=== PATIENT | female | born 1985 | race Caucasian/White ===

== ENCOUNTER 2018-02-27 22:35 | Emergency (ER) | payer OTHER, MEDICAID, SELFPAY ==
[2018-02-27] MEDS: LORazepam 2 MG/ML SYRINGE IM (23:13)
--- NOTE | 2018-02-27 23:46 | DI.CT.S_ITS ---
PROCEDURE: CT ABDOMEN PELVIS W CON INDICATIONS: severe abdominal pain TECHNIQUE: After the administration of intravenous contrast, 5 mm thick sections acquired from the diaphragm to the symphysis. 5 mm coronal and sagittal reformats were acquired. For radiation dose reduction, the following was used: automated exposure control, adjustment of mA and/or kV according to patient size. COMPARISON: None. FINDINGS: Image quality: Excellent. ABDOMEN: Lung bases: Lung bases are clear. Heart size is normal. Solid organs: Liver is normal in size and enhancement. Mild hepatic steatosis is seen. Gallbladder is within normal limits. Biliary system is non dilated. Pancreas enhances normally. Spleen is normal in size and enhancement. No adrenal nodules. Kidneys demonstrate normal size and enhancement, without hydronephrosis. Peritoneum and bowel: Bowel loops demonstrate normal wall thickness and caliber. No free fluid or air. Small hiatal hernia is seen. Appendix is visualized and is within normal limits. Nodes and vessels: No retroperitoneal or mesenteric adenopathy by size criteria. Aorta and inferior vena cava are normal in size. Miscellaneous: No ventral hernias. PELVIS: Genitourinary: Bladder wall thickness is normal. Miscellaneous: No inguinal hernias or adenopathy. Bones: No suspicious bony lesions. No vertebral body compression fractures. IMPRESSION: No acute inflammatory process within the abdomen or pelvis. No finding to explain patient's symptoms. Mild hepatic steatosis. Normal appendix. Small hiatal hernia. No significant discrepancies. Dictated by: Pete Harris M.D. on 02/28/2018 at 8:57 Approved by: Pete Harris M.D. on 02/28/2018 at 8:58
--- NOTE | 2018-02-27 23:51 | ED_ITS ---
HPI - Nausea/Vomiting/Diarrhea General Chief complaint: Nausea/Vomiting/Diarrhea Stated complaint: ABD Pain Time Seen by Provider: 02/27/18 22:50 Source: patient, family and EMS Mode of arrival: EMS Limitations: no limitations History of Present Illness HPI Narrative: 32-year-old female presents with a chief complaint of severe abdominal pain with nausea and vomiting over the course of the day. She states she has stomach ulcers and this feels similar. It is unclear if she has been taking any medications for this as she is quite hysterical and upset on her arrival. She denies any recent admissions and has had no fever or chills. She denies provocation, palliation or radiation but merely states she needs something for her nausea immediately or she will have another stomach attack MD complaint: nausea, vomiting and abdominal pain Onset (ago): hour(s) Description of Vomiting: food contents Description of Diarrhea: none Associated Abdominal Pain: Yes Location of pain: diffuse Radiation: diffuse Severity: severe Quality: cramping and aching Pain Consistency: constant Relieving factors: none Exacerbating factors: none Associated symptoms: denies other symptoms Related Data Previous Rx's Medication Instructions Recorded ondansetron [Zofran ODT] 4 mg PO Q6H PRN #14 tab 02/28/18 promethazine [Phenergan] 25 mg LA Q4-6H PRN #12 each 02/28/18 Review of Systems Review of Systems All systems reviewed & are unremarkable except as noted in HPI and below Constitutional Denies chills, Denies fever(s), Denies lethargy and Denies weakness Eyes Denies change in vision, Denies eye discharge, Denies irritation and Denies loss of vision ENT Ears, Nose, Mouth, and Throat: Denies change in voice, Denies neck pain and Denies sore throat Cardiovascular Denies chest pain, Denies irregular heart rhythm, Denies lightheadedness, Denies palpitations, Denies dyspnea, Denies dyspnea on exertion and Denies orthopnea Respiratory Denies cough, Denies dyspnea, Denies dyspnea on exertion and Denies wheezing Gastrointestinal Gastrointestinal: Reports abdominal pain, Denies change in bowel habits, Denies diarrhea, Reports nausea and Reports vomiting Genitourinary Denies hematuria, Denies flank pain, Denies urinary incontinence and Denies urinary urgency Musculoskeletal Denies neck pain Integumentary/Breasts Denies pruritus, Denies erythema, Denies rash and Denies wounds Neurologic Denies confusion, Denies loss of vision and Denies weakness Psychiatric Denies anxiety, Denies confusion, Denies depression, Denies homicidal ideation and Denies suicidal ideation Endocrine Denies palpitations Hematologic/Lymphatic Denies easy bruising Allergic/Immunologic Denies wheezing Exam Narrative Exam Narrative: 32-year-old female walks in from ambulance and is screaming and loudly vomiting/dry heaving, screaming for nausea medicines in a very busy ER Initial Vital Signs Initial Vital Signs: Vital Signs Temperature 97.7 F 02/28/18 00:13 Pulse Rate 72 02/28/18 00:13 Respiratory Rate 18 02/28/18 00:13 Blood Pressure 96/52 L 02/28/18 00:13 Pulse Oximetry 96 02/28/18 00:13 Const General: well developed, acute distress and well hydrated Nutritional Appearance: well nourished Orientation: alert, awake, oriented x3 and not confused Limitations: behavioral limitations HENMT Head: normocephalic and atraumatic Ears: external ears normal and TM's normal bilaterally Nose: external nose normal and No nasal discharge Face and sinus: sinuses nontender, face symmetric, no sinus tenderness and No dry mucous membranes Mouth: oral mucosae normal and moist mucous membranes Teeth and gingiva: dentition normal Throat: tonsils normal and uvula midline Eyes General: appearance normal, both eyes and all related structures Eyelids: eyelids normal Conjunctivae: conjunctivae normal Sclera: sclerae normal Pupils: PERRL EOM: EOM intact bilaterally Neck Neck: normal visual inspection, trachea midline, No lymphadenopathy, No midline deformity and No JVD Lymphatic: No lymphedema Chest Chest: normal inspection of the chest Resp Effort & Inspection: normal respiratory effort, able to speak in complete sentences, no respiratory distress and no use of accessory muscles Auscultation: clear to auscultation bilaterally, no rales, no rhonchi and no wheezes Cardio Rate: regular rate Rhythm: regular rhythm Heart Sounds: no click, no gallops, no murmurs and no rubs Pulses: normal peripheral pulses GI Inspection: non-distended Palpation: soft, no hepatosplenomegaly, No guarding, No pulsatile mass and tender (Entire abdomen is tender to the patient but soft with normal bowel sounds) Auscultation: normal bowel sounds Back/Spine/Pelvis Back: No CVA tenderness Cervical Spine: cervical ROM normal and No pain with cervical ROM Thoracic/Lumbar Spine: thoracic and lumbar spine normal to inspection Skin General: no rashes or lesions noted, No jaundice and No petechiae Neuro General: alert, oriented x3, gait normal and no focal motor deficits Speech: speech normal Extrem General: full ROM, no clubbing, cyanosis or edema, no pedal edema and no calf tenderness Psych Appearance: disheveled Mental Status: mental status grossly normal Speech and Movement: agitated Mood: irritable mood Affect: animated, anxious affect and hostile Attitude: cooperative Thought Content: normal and suicidality Judgment: judgment good Course Orders Ordered: ED Orders 02/27/18 23:46 CT abdomen pelvis w con Stat 02/27/18 23:56 Complete Blood Count AUTO DIFF Stat Comprehensive Metabolic Panel Stat Discontinued Medications Sodium Chloride (Normal Saline 0.9%) 1,000 mls @ 1,000 mls/hr IV BOLUS ONE Stop: 02/28/18 00:45 Last Infusion: 02/28/18 04:00 Dose: 0 mls/hr Admin: 02/27/18 23:57 Dose: 1,000 mls/hr Lorazepam (Ativan) 2 mg IM NOW ONE Stop: 02/27/18 23:07 Last Admin: 02/27/18 23:13 Dose: 2 mg Ondansetron HCl (Zofran Odt) 4 mg PO NOW ONE Stop: 02/27/18 23:16 Last Admin: 02/27/18 23:16 Dose: Not Given Ondansetron HCl (Zofran) 4 mg IV NOW ONE Stop: 02/27/18 23:47 Last Admin: 02/27/18 23:57 Dose: 4 mg Reevaluation(s) Reevaluation #1: Patient is very hostile to all staff whom are trying to help her. She refused a Zofran ODT while we were pulling IV and labs. She kicked of 1 out of the room and was screaming at us, stating nobody cared and would help her. She demanded a new doctor when I asked if we could give her the initial Zofran as a dissolvable tablet while we prepared the rest of the items for her evaluation. She was given Ativan due to her persistent vomiting and suspicion of cyclic vomiting which seemed to really help her and allow us to start an IV, administered fluids, CT and other. Vital Signs - 8 hr 02/28/18 00:13 02/28/18 02:30 02/28/18 03:30 Temperature 97.7 F Pulse Rate 72 74 75 Respiratory Rate 18 Blood Pressure [Left Arm] 96/52 L 96/49 L 113/65 Pulse Oximetry 96 97 98 02/28/18 04:30 Temperature Pulse Rate 75 Respiratory Rate Blood Pressure [Left Arm] 105/60 Pulse Oximetry 98 MDM - Nausea/Vomiting/Diarrhea Differential Diagnosis Likely traveler's diarrhea, food poisoning, gastroenteritis, clostridium difficile infection, drug-induced nausea and vomiting and dehydration Medical Records Attestation: I reviewed the patient's medical records. Lab Data Attestation: I reviewed the patient's lab results. Result diagrams: 02/27/18 23:56 02/27/18 23:56 Lab Results 02/27/18 02/27/18 Range/Units 23:56 23:56 WBC 10.3 (4.5-11.0) X10^3/uL RBC 4.75 (4.0-5.2) X10^6/uL Hgb 14.9 (12.0-16.0) g/dL Hct 42.8 (36-46) % MCV 90.1 (80-100) fL MCH 31.4 (26-34) PG MCHC 34.9 (30-36) % RDW 13.6 (11.6-14.8) % Plt Count 241 (150-400) X10^3/uL Neut % (Auto) 69.1 (50-75) % Lymph % (Auto) 22.5 L (25-40) % [place] % (Auto) 7.8 (3-14) % Eos % (Auto) 0.2 L (2-4) % Baso % (Auto) 0.4 (0-2) % Neut # (Auto) 7100 H (5137-6046) /uL Sodium 147 H (137-145) mmol/L Potassium 3.6 (3.4-5.1) mmol/L Chloride 105 (98-107) mmol/L Carbon Dioxide 29 (22-32) mmol/L BUN 10 (7-17) mg/dL Creatinine 0.80 (0.52-1.04) mg/dL Estimated GFR > 60.0 (>60) mL/min BUN/Creatinine Ratio 12.5 (6-22) Glucose 110 H (70-100) mg/dL Calcium 9.4 (8.4-10.2) mg/dL Total Bilirubin 0.3 (0.2-1.3) mg/dL AST 25 (14-36) IU/L ALT 26 (9-52) IU/L Alkaline Phosphatase 59 (38-126) U/L Total Protein 7.6 (6.3-8.2) g/dL Albumin 4.7 (3.5-5.0) g/dL Globulin 2.9 (1.7-4.1) g/dL Albumin/Globulin Ratio 1.6 (1.0-2.8) Imaging Data CT scan - abdomen: Radiologist's impression: Distended gallbladder without stones Discharge Plan Departure Patient Disposition: Home Clinical Impression: Vomiting, Abdominal pain Instructions: DI for Vomiting -- Adult Activity Restrictions/Additional Instructions: *You have been diagnosed with [abdominal pain and vomiting ] *What to do: *Take medications as directed *Follow up with your primary care provider in 2-3 days, call for an appointment. Let them know you were seen in the Emergency Department and that we ask that you be seen in follow up *Return to ER if you should have any new, worsening or concerning symptoms Prescriptions: New promethazine [Phenergan] 25 mg suppository 25 mg LA Q4-6H PRN (Reason: nausea and vomiting) Qty: 12 RF: 0 ondansetron [Zofran ODT] 4 mg tablet,disintegrating 4 mg PO Q6H PRN (Reason: nausea and vomiting) Qty: 14 RF: 0
[2018-02-27] MEDS: ONDANSETRON 4 MG/2 ML INJ IV (23:57)
[2018-02-27] MEDS: SODIUM CHLORIDE 0.9% 1,000 ML 1000 ML IV (23:57)
[2018-02-28 00:02] LABS: Add Manual Diff / Slide Review NO; Basophils Percent Auto 0.4 % (0-2); Eosinophils Percent Auto 0.2 % (2-4); Hematocrit 42.8 % (36-46); Hemoglobin 14.9 g/dL (12.0-16.0); Lymphocytes Percent Auto 22.5 % (25-40); Mean Corpuscular HGB Conc 34.9 % (30-36); Mean Corpuscular Hemoglobin 31.4 PG (26-34); Mean Corpuscular Volume 90.1 fL (80-100); Monocytes Percent Auto 7.8 % (3-14); Neutrophils Absolute Auto 7100 /uL (3000-5900); Neutrophils Percent Auto 69.1 % (50-75); Platelet Count 241 X10^3/uL (150-400); Red Blood Cell Count 4.75 X10^6/uL (4.0-5.2); Red Cell Distribution Width 13.6 % (11.6-14.8); White Blood Cell Count 10.3 X10^3/uL (4.5-11.0)
[2018-02-28 00:10] LABS: Alanine Aminotransferase 26 IU/L (9-52); Albumin 4.7 g/dL (3.5-5.0); Albumin Globulin Ratio 1.6 (1.0-2.8); Alkaline Phosphatase 59 U/L (38-126); Aspartate Aminotransferase 25 IU/L (14-36); BUN Creatinine Ratio 12.5 (6-22); Bilirubin Total 0.3 mg/dL (0.2-1.3); Blood Urea Nitrogen 10 mg/dL (7-17); Calcium 9.4 mg/dL (8.4-10.2); Carbon Dioxide 29 mmol/L (22-32); Chloride 105 mmol/L (98-107); Estimated Glomerular Filt Rate > 60.0 mL/min (>60); Globulin 2.9 g/dL (1.7-4.1); Glucose 110 mg/dL (70-100); HEMOLYSIS < 15 (0-50); Potassium 3.6 mmol/L (3.4-5.1); Sodium 147 mmol/L (137-145); Total Protein 7.6 g/dL (6.3-8.2)
--- NOTE | 2018-02-28 00:12 | PC.NURSE ---
Pt continues to be very labile with aggressive language towards staff. She called nurse and doctor erlinda marte. Not allowing staff to ask her questions about her condition. At 0015 she did allow staff to take a set of vital signs. She is complaining of throbbing pain in lower abdomen. Denies possibility of . When asked if her pain feels similar to her ulcers in the past, she began screaming and cursing at me.
[2018-02-28 00:13] VITALS: BP 96/52; PULSE 72; RESP 18; TEMP 36.5; O2SAT 96
[2018-02-28 02:30] VITALS: BP 96/49; PULSE 74; O2SAT 97
[2018-02-28 03:30] VITALS: BP 113/65; PULSE 75; O2SAT 98
[2018-02-28 04:30] VITALS: BP 105/60; PULSE 75; O2SAT 98
--- NOTE | 2018-02-28 05:38 | PC.NURSE ---
Pt. has been sleeping since I assumed her care from Johana MCGARRY. I aroused her a couple times to reposition blood pressure cuff. Patient was calm and cooperative. Denies needs. returns to sleep.
[2018-02-28 05:41] VITALS: BP 119/68; PULSE 77; RESP 17; TEMP 36.8; O2SAT 98
== END 2018-02-28 05:44 | disposition home or self-care (01) ==
PROVIDERS: Emergency Provider Emergency Medicine
DX: R11.10 Vomiting, unspecified (principal); R10.9 Unspecified abdominal pain
CPT/HCPCS: 36591; 74177; 80053; 85025; 96361; 96372; 96374; 99283; 99285; J2060; J2405; Q9967

== ENCOUNTER 2020-11-05 16:09 | Emergency (ER) | payer OTHER, MEDICAID, SELFPAY ==
[2020-11-05 16:13] VITALS: BP 140/72; PULSE 101; RESP 18; TEMP 36.7; O2SAT 100
--- NOTE | 2020-11-05 16:22 | ED.SKABFB ---
HPI - Skin/Abscess/Foreign Bdy General Chief complaint: Skin/Abscess/Foreign Body Stated complaint: swollen feet from sun poisoning Time Seen by Provider: 11/05/20 16:19 Source: patient Mode of arrival: Ambulatory Limitations: no limitations History of Present Illness HPI narrative: 34-year-old female daily smoker with a history of ulcers presents with a chief complaint of a few days of bilateral foot pain and swelling. She states that she had been outside and had significant sun exposure and developed a sunburn followed by some blisters and now this swelling and pain. The redness and swelling does not extend beyond the anterior half of her feet. She is able to ambulate without significant difficulty. She denies any systemic findings such as fever, chills nor nausea or vomiting. She does have a few areas with breaks in the skin which are the likely route of her mild infection MD complaint: discoloration Onset (ago): day(s) Tetanus up to date: yes Location: L foot and R foot Severity: moderate Quality: burning and aching Pain Consistency: constant Relieving factors: rest Exacerbating factors: palpation and movement Treatments prior to arrival: bandages Related Data Previous Rx's Medication Instructions Recorded ondansetron [Zofran ODT] 4 mg PO Q6H PRN #14 tab 02/28/18 promethazine [Phenergan] 25 mg LA Q4-6H PRN #12 each 02/28/18 cephalexin 500 mg PO Q6H 7 Days #28 cap 11/05/20 ketorolac 10 mg PO Q6H PRN #14 tab 11/05/20 Allergies Allergy/AdvReac Type Severity Reaction Status Date / Time No Known Drug Allergies Allergy Verified 11/05/20 16:16 Review of Systems Constitutional Constitutional: Denies chills, Denies fatigue, Denies fever(s), Denies frequent falls, Denies lethargy and Denies weakness Eyes Eyes: Denies change in vision, Denies eye discharge, Denies irritation and Denies loss of vision ENT Ears, Nose, Mouth, and Throat: Denies change in voice, Denies dizziness, Denies neck pain, Denies sore throat and Denies throat swelling Cardiovascular Cardiovascular: Denies chest pain, Denies irregular heart rhythm, Denies lightheadedness, Denies palpitations, Denies dyspnea, Denies dyspnea on exertion and Denies orthopnea Respiratory Respiratory: Denies cough, Denies dyspnea, Denies dyspnea on exertion and Denies wheezing Gastrointestinal Gastrointestinal: Denies abdominal pain, Denies change in bowel habits, Denies diarrhea, Denies nausea and Denies vomiting Musculoskeletal Musculoskeletal: Denies neck pain and Denies numbness Integumentary/Breasts Skin/Breast: Denies pruritus, Reports erythema, Denies rash, Reports skin pain, Reports skin swelling and Denies wounds Neurologic Neurologic: Denies behavioral changes, Denies confusion, Denies dizziness, Denies frequent falls, Denies loss of vision, Denies numbness and Denies weakness Psychiatric Psychiatric: Denies anxiety, Denies behavioral changes, Denies confusion, Denies depression, Denies homicidal ideation and Denies suicidal ideation Endocrine Endocrine: Denies fatigue, Denies flushing and Denies palpitations Hematologic/Lymphatic Hematologic/Lymphatic: Denies easy bruising Allergic/Immunologic Allergic/Immunologic: Denies urticaria, Denies throat swelling and Denies wheezing Patient History Social History Smoking Status: Current some day smoker Smoking Status: Current some day smoker Exam Narrative Exam Narrative: GEN: AOx3 and in mild distress EYES: Pupils are equal, round, and reactive to light and accommodation. Extraoccular muscles are intact bilaterally. There is no subconjunctival hemorrhage or exudate. CHEST: Lungs are clear to auscultation bilaterally and free of wheezes, rales, or rhonchi. Heart rate is regular rhythm, there are no murmurs, clicks, rubs, or gallops. There is no chest wall tenderness. ABD: Abdomen is soft and nontender. There is no guarding or rebound. Bowel sounds are normal in all 4 quadrants. There is no mass or organomegaly. EXT: Full painless ROM of all extremities with no loss of sensation or strength. SKIN: Dorsum of both feet is erythematous and a bit edematous. There is evidence of some spontaneously on roofed blisters, presumably from sunburn but no drainage of purulence, no induration or fluctuance. There is no lymphangitis and erythema it is isolated to the dorsum of bilateral distal feet, compartments are soft, sensation and cap refill intact Initial Vital Signs Initial Vital Signs: Vital Signs Temperature 98.0 F 11/05/20 16:13 Pulse Rate 101 H 11/05/20 16:13 Respiratory Rate 18 11/05/20 16:13 Blood Pressure 140/72 11/05/20 16:13 Pulse Oximetry 100 11/05/20 16:13 Course Vital Signs Vital signs: Vital Signs - 8 hr 11/05/20 16:13 Temperature 98.0 F Pulse Rate 101 H Respiratory Rate 18 Blood Pressure 140/72 Pulse Oximetry 100 Discharge Plan Departure Patient Disposition: Home Clinical Impression: Cellulitis Qualifiers: Site of cellulitis: extremity Site of cellulitis of extremity: lower extremity Laterality: unspecified laterality Qualified Code(s): L03.119 - Cellulitis of unspecified part of limb Instructions: DI for Cellulitis -- Adult Activity Restrictions/Additional Instructions: *You have been diagnosed with [bilateral lower extremity cellulitis] *What to do: *Please continue to take your regular medications as directed. [ ] New medication prescriptions sent to your pharmacy: [ ] [x ] New medication written as a paper prescription [ ] No new medications given *Please follow up with your primary care provider in 2-3 days, call for an appointment. Let them know you were seen in the Emergency Department and that we ask that you be seen in follow up. We will electronically transmit a record of today's note if your PCP is in our system *If you do not have a primary care provider please contact the [facility] Resource line at [phone]. They will ask some questions about your medical history and help get you set up with a doctor in the community. *Return to Emergency Department if you should have any new, worsening or concerning symptoms, such as [fever greater than 101 F, shaking chills, worsening pain, persistent vomiting or other bothersome symptoms] Prescriptions: New ketorolac 10 mg tablet 10 mg PO Q6H PRN (Reason: pain) Qty: 14 RF: 0 cephalexin 500 mg capsule 500 mg PO Q6H 7 Days Qty: 28 RF: 0 No Action promethazine [Phenergan] 25 mg suppository 25 mg LA Q4-6H PRN (Reason: nausea and vomiting) Qty: 12 RF: 0 ondansetron [Zofran ODT] 4 mg tablet,disintegrating 4 mg PO Q6H PRN (Reason: nausea and vomiting) Qty: 14 RF: 0
== END 2020-11-05 17:17 | disposition home or self-care (01) ==
PROVIDERS: Emergency Provider Emergency Medicine
DX: L03.116 Cellulitis of left lower limb (principal); L03.115 Cellulitis of right lower limb
CPT/HCPCS: 99281

== ENCOUNTER 2020-11-26 14:37 | Emergency (ER) | payer OTHER, MEDICAID, SELFPAY ==
[2020-11-26 14:38] VITALS: BP 120/75; PULSE 99; RESP 12; O2SAT 99; BMI 27.4
[2020-11-26 14:40] VITALS: PULSE 98; O2SAT 99
--- NOTE | 2020-11-26 14:52 | ED.GENADULT ---
HPI - General Adult General Chief complaint: Fall Stated complaint: FELL HIT RIGHT SIDE SWELLING Time Seen by Provider: 11/26/20 14:46 Source: patient Mode of arrival: Ambulatory Limitations: no limitations History of Present Illness HPI narrative: Patient states that for the past several months she has had issues with shortness of breath. She has not seen any providers for this. It is difficult for her to describe but she states that she become short of breath when she exerts herself. This does only happen occasionally. She also feels like her pulse is being ?pulled to the right side of her body. She states that last evening she fell over because she was short of breath landing on her right side. She is here because of the discomfort on her right side and also her shortness of breath. Related Data Previous Rx's Medication Instructions Recorded ondansetron [Zofran ODT] 4 mg PO Q6H PRN #14 tab 02/28/18 promethazine [Phenergan] 25 mg IN Q4-6H PRN #12 each 02/28/18 ketorolac 10 mg PO Q6H PRN #14 tab 11/05/20 Allergies Allergy/AdvReac Type Severity Reaction Status Date / Time No Known Drug Allergies Allergy Verified 11/26/20 14:43 Review of Systems Constitutional Constitutional: Denies fever(s) and Denies headache(s) ENT Ears, Nose, Mouth, and Throat: Denies headache(s) Cardiovascular Cardiovascular: Denies chest pain and Reports dyspnea (Occasional) Respiratory Respiratory: Reports dyspnea (Occasional) Gastrointestinal Gastrointestinal: Denies abdominal pain Integumentary/Breasts Comments: Bruising to her right arm, right hand and right side Neurologic Neurologic: Reports system reviewed and no additional complaints, except as documented and Denies headache(s) Psychiatric Psychiatric: Reports auditory hallucinations Hematologic/Lymphatic On Anticoagulants: No Allergic/Immunologic Allergic/Immunologic: Reports system reviewed and no additional complaints, except as documented Patient History Medical History Schizophrenia Social History Smoking Status: Current some day smoker Smoking Status: Current some day smoker alcohol intake frequency: holidays/special occasions only Substance Use Type: marijuana Exam Initial Vital Signs Initial Vital Signs: Vital Signs Pulse Rate 99 H 11/26/20 14:38 Respiratory Rate 12 11/26/20 14:38 Blood Pressure 120/75 11/26/20 14:38 Pulse Oximetry 99 11/26/20 14:38 Const General: cooperative and comfortable HENMT Head: normal to inspection and normocephalic Chest Chest: No tenderness Resp Effort & Inspection: normal respiratory effort Auscultation: clear to auscultation bilaterally Cardio Rate: regular rate Rhythm: regular rhythm Skin Other: Patient has a bruise on her right shoulder. Also has a bruise in the back of her right hand. Also has a bruise along her right flank. Neuro General: patient alert, patient awake and patient oriented x3 Speech: speech normal Extrem General: normal to inspection and capillary refill normal Other: Full range of motion of joints of her right upper and lower extremity Psych Appearance: grossly normal and well kempt Course Orders Ordered: ED Orders 11/26/20 14:54 XR chest 1V Stat EKG-12 Lead Stat 11/26/20 15:09 Consult to [facility] [place] - Marine Superintendent Stat 11/26/20 15:10 Complete Blood Count AUTO DIFF Stat Comprehensive Metabolic Panel Stat Lipase Stat Partial Thromboplastin Time Stat Prothrombin Time INR Stat Vital Signs Vital signs: Vital Signs - 8 hr 11/26/20 14:38 11/26/20 14:40 11/26/20 15:00 Pulse Rate 99 H 98 H 94 H Respiratory Rate 12 Blood Pressure 120/75 Pulse Oximetry 99 99 99 11/26/20 16:00 Pulse Rate 96 H Respiratory Rate Blood Pressure Pulse Oximetry 100 Medical Decision Making Lab Data Lab results reviewed: Yes I reviewed the patient's lab results. Result diagrams: 11/26/20 15:10 11/26/20 15:10 Labs: Lab Results 11/26/20 11/26/20 11/26/20 Range/Units 15:10 15:10 15:10 WBC 8.3 (4.5-11.0) X10^3/uL RBC 4.64 (4.0-5.2) X10^6/uL Hgb 14.0 (12.0-16.0) g/dL Hct 42.2 (36-46) % MCV 90.9 (80-100) fL MCH 30.2 (26-34) PG MCHC 33.2 (30-36) % RDW 14.1 (11.6-14.8) % Plt Count 298 (150-400) X10^3/uL Neut % (Auto) 66.0 (50-75) % Lymph % (Auto) 25.5 (25-40) % Wagoner % (Auto) 7.0 (3-14) % Eos % (Auto) 0.7 L (2-4) % Baso % (Auto) 0.8 (0-2) % Neut # (Auto) 5500 (9008-9597) /uL Lymph # (Auto) 2100 (2336-8573) /uL Wagoner # (Auto) 600 (0-900) /uL Eos # (Auto) 100 (0-450) /uL Baso # (Auto) 100 (0-100) /uL PT 10.9 (10.1-12.7) SECONDS INR 1.0 (0.9-1.3) APTT 36 (26.4-36.2) SECONDS Sodium 137 (137-145) mmol/L Potassium 3.6 (3.4-5.1) mmol/L Chloride 99 (98-107) mmol/L Carbon Dioxide 30 (22-32) mmol/L BUN 11 (7-17) mg/dL Creatinine 0.87 (0.52-1.04) mg/dL Estimated GFR > 60.0 (>60) mL/min BUN/Creatinine Ratio 12.6 (6-22) Glucose 138 H (70-100) mg/dL Calcium 9.6 (8.4-10.2) mg/dL Total Bilirubin 0.3 (0.2-1.3) mg/dL AST 19 (14-36) IU/L ALT 17 (<35) IU/L Alkaline Phosphatase 73 (38-126) U/L Total Protein 7.7 (6.3-8.2) g/dL Albumin 4.5 (3.5-5.0) g/dL Globulin 3.2 (1.7-4.1) g/dL Albumin/Globulin Ratio 1.4 (1.0-2.8) Lipase 57 (23-300) U/L Imaging Data Chest x-ray: Radiologist's Impression: [address] [id number] ReportSigned Patient: Viktoriya Sainz LMR#: [id number]: 1985Acct:[id number]/Sex: 34 / FDate of Service: 11/26/20Loc: EDAccession Number: [id number] Procedure: XR chest 1V Ordering Provider: Max Curran D.O. PROCEDURE: XR CHEST 1V INDICATIONS: Shortness of breath TECHNIQUE: One view of the chest was acquired. COMPARISON: None. FINDINGS: Surgical changes and devices: None. Lungs and pleura: Lungs are clear. No pleural effusions or pneumothorax. Mediastinum: Mediastinal contours appear normal. Heart size is normal. Bones and chest wall: No suspicious bony lesions. Overlying soft tissues appear unremarkable. IMPRESSION: Normal for age, source of current shortness of breath symptoms is not seen. Dictated by: Jan Maher M.D. on 11/26/2020 at 14:33 Approved by: Jan Maher M.D. on 11/26/2020 at 14:34 ECG Data Attestation: I personally reviewed and interpreted this ECG as follows: Prior ECG tracings: not available for review Interpretation: Sinus rhythm Ventricular rate 86 Normal axis Normal QRS Normal QTC No ST T wave changes MDM Narrative Medical decision making narrative: Chest x-ray is unremarkable, EKG is unremarkable, labs unremarkable, low suspicion for fractures. She does have bruising on her right arm and on her right flank. They do appear to be somewhat older than 24 hours ago when she states that the event occurred. She states she feels safe at home. Not suicidal. Not homicidal. Was seen by social work. No further workup needed here in the emergency department. I do suspect that much of her symptoms are the result of her psychiatric illness. Patient is safe for discharge home. She was given return precautions. She expressed understanding and agreement. Discharge Plan Departure Patient Disposition: Home Clinical Impression: Contusion of arm, right, Contusion of hand, right, Contusion of flank Instructions: DI for Contusion Activity Restrictions/Additional Instructions: Your workup here in the emergency department is very reassuring. I recommend that you contact your primary doctor and also your mental health provider for follow-up. Continue all of your medication as directed. Return to the emergency department for any new or worsening symptoms Prescriptions: No Action ketorolac 10 mg tablet 10 mg PO Q6H PRN (Reason: pain) Qty: 14 RF: 0 promethazine [Phenergan] 25 mg suppository 25 mg IN Q4-6H PRN (Reason: nausea and vomiting) Qty: 12 RF: 0 ondansetron [Zofran ODT] 4 mg tablet,disintegrating 4 mg PO Q6H PRN (Reason: nausea and vomiting) Qty: 14 RF: 0
[2020-11-26 15:00] VITALS: PULSE 94; O2SAT 99
[2020-11-26 15:14] LABS: Add Manual Diff / Slide Review NO; Basophils Absolute Auto 100 /uL (0-100); Basophils Percent Auto 0.8 % (0-2); Eosinophils Absolute Auto 100 /uL (0-450); Eosinophils Percent Auto 0.7 % (2-4); Hematocrit 42.2 % (36-46); Lymphocytes Absolute Auto 2100 /uL (1100-4500); Lymphocytes Percent Auto 25.5 % (25-40); Mean Corpuscular HGB Conc 33.2 % (30-36); Mean Corpuscular Hemoglobin 30.2 PG (26-34); Mean Corpuscular Volume 90.9 fL (80-100); Monocytes Absolute Auto 600 /uL (0-900); Neutrophils Absolute Auto 5500 /uL (1500-7000); Platelet Count 298 X10^3/uL (150-400); Red Blood Cell Count 4.64 X10^6/uL (4.0-5.2); Red Cell Distribution Width 14.1 % (11.6-14.8); White Blood Cell Count 8.3 X10^3/uL (4.5-11.0)
[2020-11-26 15:20] LABS: Prothrombin Time 10.9 SECONDS (10.1-12.7)
[2020-11-26 15:23] LABS: PTT Partial Thromboplastin Tim 36 SECONDS (26.4-36.2)
[2020-11-26 15:25] LABS: Alanine Aminotransferase 17 IU/L (<35); Albumin 4.5 g/dL (3.5-5.0); Albumin Globulin Ratio 1.4 (1.0-2.8); Alkaline Phosphatase 73 U/L (38-126); Aspartate Aminotransferase 19 IU/L (14-36); BUN Creatinine Ratio 12.6 (6-22); Bilirubin Total 0.3 mg/dL (0.2-1.3); Blood Urea Nitrogen 11 mg/dL (7-17); Calcium 9.6 mg/dL (8.4-10.2); Carbon Dioxide 30 mmol/L (22-32); Chloride 99 mmol/L (98-107); Estimated Glomerular Filt Rate > 60.0 mL/min (>60); Globulin 3.2 g/dL (1.7-4.1); Glucose 138 mg/dL (70-100); HEMOLYSIS < 15 (0-50); Lipase 57 U/L (23-300); Potassium 3.6 mmol/L (3.4-5.1); Sodium 137 mmol/L (137-145); Total Protein 7.7 g/dL (6.3-8.2)
[2020-11-26 16:00] VITALS: PULSE 96; O2SAT 100
[2020-11-26 16:30] VITALS: PULSE 95; RESP 20; O2SAT 97
--- NOTE | 2020-11-26 16:39 | CM.SWNOTE ---
DISTRIBUTING CLERK Assessment DISTRIBUTING CLERK - Scheduling Assistant Assessment DISTRIBUTING CLERK/Scheduling Assistant Assessment Time Spent with Patient Start date 11/26/20 Visit Start Time 15:35 End date 11/26/20 Visit End Time 16:15 Total time Care Management spent on 40 patient visit-in minutes Mental Health Screening Include Onset, Duration, Intensity Presenting Problem Patient presents to this ED with concerns of SOB and reports of passing out last evening. Precipitating Event(s) Patient states that she smoked THC prior to passing out yesterday. Patient states she has been experiencing these symptoms for the last two year . Patient Strengths Patient is good advocate for self and goal oriented. Current Behavioral Health Provider(s) Patient states she shes Include Facility, Provider, Ph. # [facility] at [facility], but will be getting a new counselor soon. (Ph. # ) Psych. Hx Mental Health and Chemical Patient reports dx of Dependency Schizophrenia Patient states she smokes cigarettes, and uses THC and Methamphetamine. Patient states she uses Methamphetamine once every five days, or even longer spurts of time. Patient reports no withdrawal symptoms . Family Hx of Behavioral Abuse None reported. Psychiatric Hospitalizations (date(s)/ None reported location) Psychosocial information & Support Patient is 34 y/o female Systems currently homeless residing in [place]. Patient states she has been staying in motels over the last week and prior to that was residing at her sister's home but her sister does not have room for her currently. Patient states that other family members are not active supports as she does not want to impede and reports that they are struggling financially. 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 Patient states she has intuitions that are vibrations. Patient states I feel like I am expelling my soul when I smoke cigarettes. Thought Processes (Tbnikpo-Jbdpfjig-Uicg Coherent Zbzxffke-Vaxpjiye-Nfazfspzvv- Wmylqdrcksqost-Jbqshcv-Wqnqvmohzlin- Thought Blocking) Speech (Dfmmev-Phfq-Xvqquqp-Rapid-Soft- Normal/rapid Loud-Pressured) Motor (Ojwpam-Iobvwrucr-Ixoe-Other) normal Insight (Uequ-Hbkg-Moef/Limited) Good Judgement (Nmwr-Rktj-Vqtd/Limited) Good/fair Impulse Control (Adequate-Impaired) adequate Memory (Qnlqphcyn-Xslbpo-Sxrbkj, intact, not formally assessed Impaired-Intact) Concentration (Intact-Impaired) intact Attention (Intact-Impaired) intact Behavior (Appropriate-Inappropriate) appropriate Risk Assessment Suicidal Ideation (Plan) No Homicidal Ideation (Plan) No Comment Patient denies SI and HI Intervention Intervention DISTRIBUTING CLERK meets with patient. Patient states that she is stressed about her housing insecurity and limited income. Patient endorses that she is on medication for her schizophrenia dx and takes her medication regularly. Patient reports concern of her recent episode of passing out and her SOB. Patient states she has a PCP at [facility] as well. DISTRIBUTING CLERK discusses resources available to patient in [facility]. Patient states that she has been staying in motels and it is becoming expensive. Patient states that she has utilized homeless resources before two years ago and was kicked out and would like to inquire again. Patient endorses that she has goals to be independent and self sufficient. It is the opinion of this DISTRIBUTING CLERK that patient is safe to d/c to the community when medically clear. DISTRIBUTING CLERK reviews the above with ZEFERINO Bustamante and she indicates agreement and understanding. Plan RA Plan DISTRIBUTING CLERK to provide patient with local resources and inquire to housing shelters, patient to d/c to the community when medically clear. KEVIN Maza
--- NOTE | 2020-11-26 16:40 | CM.SWNOTE ---
PRECIPITATOR OPERATOR Note PRECIPITATOR OPERATOR calls [facility] in [place], it is reported that patient can call to set up intake appt to further assess if patient is appropriate and eligible for women and family retirement. PRECIPITATOR OPERATOR informs patient of this and she indicates understanding. Patient states her preference is to reside in [place]. Patient also states that she feels somewhat safe in [place] but reports that the town is like a game board and it is eating at me. PRECIPITATOR OPERATOR discusses [facility] and staying at a motel in [place], patient requests preference to return to [place]. Patient states she would like to see if she can go back to the [facility]. PRECIPITATOR OPERATOR calls the [facility] and leaves requesting return call. Plan: Inquire further about shelters and housing resources for patient, patient to d/c to the community when medically clear. KEVIN Maza
[2020-11-26 17:00] VITALS: BP 109/53; PULSE 93; RESP 18
== END 2020-11-26 17:17 | disposition home or self-care (01) ==
PROVIDERS: Emergency Provider Emergency Medicine
DX: S40.021A Contusion of right upper arm, initial encounter (principal); S60.221A Contusion of right hand, initial encounter; S30.1XXA Contusion of abdominal wall, initial encounter; R06.02 Shortness of breath; W19.XXXA Unspecified fall, initial encounter
CPT/HCPCS: 36415; 71045; 80053; 81003; 83690; 85025; 85610; 85730; 93005; 99284